=== PATIENT | female | born 2000 | race Caucasian/White ===

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

== ENCOUNTER 2024-05-16 13:34 | Emergency (ER) | payer OTHER ==
[2024-05-16 13:46] VITALS: BP 121/78; PULSE 89; RESP 18; TEMP 97.7; BMI 32.1
[2024-05-16 15:21] LABS: URINE BILIRUBIN NEGATIVE (NEGATIVE); URINE COLOR YELLOW; URINE GLUCOSE (UA) NEGATIVE (NEGATIVE); URINE KETONE NEGATIVE (NEGATIVE); URINE LEUK ESTERASE NEGATIVE (NEGATIVE); URINE NITRITE NEGATIVE (NEGATIVE); URINE PROTEIN NEGATIVE (NEGATIVE); URINE UROBILINOGEN 0.2 mg/dL (0.2-1.0)
[2024-05-16 15:45] LABS: URINE APPEARANCE CLEAR
[2024-05-16 16:04] LABS: HIV INTERPRETATION NEGATIVE (NEGATIVE)
== END 2024-05-16 15:32 | disposition home or self-care (01) ==
LOC: JERFT 13:34
DX: B37.31 Acute candidiasis of vulva and vagina (principal)
CPT/HCPCS: 36415; 81003; 84703; 86803; 87070; 87077; 87086; 87205; 87389; 87491; 87591; 87661; 99283-25